=== PATIENT | male | born 2000 | race Caucasian/White ===

== ENCOUNTER 2022-03-26 20:31 | Emergency (ER) | payer BC ==
[2022-03-26] MEDS ORDERED: Ofloxacin 0.3% Ophth Soln 5 ML Bottle EARRT ONE (23:57)
== END 2022-03-27 00:52 | disposition home or self-care (01) ==
LOC: JD.ED 20:31
DX: S09.91XA Unspecified injury of ear, initial encounter (principal); Z79.899 Other long term (current) drug therapy; W45.8XXA Other foreign body or object entering through skin, initial encounter
CPT/HCPCS: 99282; 99283

== ENCOUNTER 2023-05-28 01:35 | Emergency (ER) | payer BC ==
[2023-05-28] MEDS ORDERED: Lidocaine 1% 10 ML MDV INJECT ONE (02:55)
[2023-05-28] MEDS ORDERED: Lidocaine 1% 10 ML MDV ONE (02:55)
== END 2023-05-28 03:33 | disposition home or self-care (01) ==
LOC: JD.ED 01:35
DX: S01.511A Laceration without foreign body of lip, initial encounter (principal); Z88.0 Allergy status to penicillin; W22.8XXA Striking against or struck by other objects, initial encounter; Y93.02 Activity, running
CPT/HCPCS: 12011; 99282; 99283; J3490